=== PATIENT | female | born 1940 | race Caucasian/White ===

== ENCOUNTER 2019-09-24 06:00 | Outpatient (RCR) | payer MEDICARE, OTHER, SELFPAY | END 2019-10-24 00:01 | LOC: SPT 06:00 | PROVIDERS: Family Provider Family Medicine; Visit Provider Family Medicine | DX: I89.8 Other specified noninfective disorders of lymphatic vessels and lymph nodes (principal) | CPT/HCPCS: 97140 ×4 ==

== ENCOUNTER 2019-10-09 10:01 | Outpatient (RCR) | payer MEDICARE, OTHER, SELFPAY | END 2019-10-24 00:01 | LOC: ONCMED 10:01 | PROVIDERS: Family Provider Family Medicine; Visit Provider Internal Medicine Medical Oncology | DX: C77.3 Secondary and unspecified malignant neoplasm of axilla and upper limb lymph nodes (principal); C78.02 Secondary malignant neoplasm of left lung; Z85.820 Personal history of malignant melanoma of skin; T82.9XXA Unspecified complication of cardiac and vascular prosthetic device, implant and graft, initial encounter; Y80.1 Therapeutic (nonsurgical) and rehabilitative physical medicine devices associated with adverse incidents; Z92.3 Personal history of irradiation | CPT/HCPCS: 36593; 36598; 71250; 96374; J1642; J2997; Q9967 ==

== ENCOUNTER 2019-10-25 06:00 | Outpatient (RCR) | payer MEDICARE, OTHER, SELFPAY | END 2019-11-24 23:59 | disposition home or self-care (01) | LOC: SPT 06:00 | PROVIDERS: Family Provider Family Medicine; PCP Family Medicine; Referring Provider Family Medicine; Visit Provider Family Medicine | DX: I89.0 Lymphedema, not elsewhere classified (principal) | CPT/HCPCS: 97140 ==

== ENCOUNTER 2019-11-13 06:16 | Day surgery (SDC) | payer MEDICARE, OTHER, SELFPAY ==
[2019-11-10 12:18] VITALS: BMI 42.0
--- NOTE | 2019-11-13 | SCC_ITS ---
Procedure Done: Exchange to PowerPort in the left subclavian vein from the existing Mediport 1.2 seconds of fluoroscopic guidance, for a cumulative dose of 22.95 mGy, was provided to Dr. Grant by the radiology department. C-arm images of the chest were saved for the patient's permanent record. [facility]
--- NOTE | 2019-11-13 06:32 | SC_ITS ---
WS: [id number] INTRAOPERATIVE TECHNIQUE: 2 Spot fluoroscopic images for intraoperative purposes. FLUOROSCOPY TIME: 72.5 seconds CLINICAL INFORMATION: Mediport placement COMPARISON: None. FINDINGS: Left Port-A-Cath with tip in the distal SVC. No visualized pneumothorax. SC/C-arm [place] CVA [id number] IMPRESSION: Images obtained for intraoperative purposes.
--- NOTE | 2019-11-13 06:54 | ANES.PREANES ---
Pre-Anesthetic Assessment Pre-Anesthetic Assessment: Height/Weight: Height 1.5 m Weight 94.347 kg Preop Diagnosis: Nonfunctioning MediPort Proposed Procedure: Operation Date: 11/13/19 08:00 Proposed Procedures p Portacath Revision(Not Applicable) - Zohaib Bermudez MD Last intake: Intake Last Liquid Date 11/12/19 Last Liquid Time 05:30 Last Solid Date 11/12/19 Last Solid Time 21:30 Social: Social History: Tobacco, No alcohol and No tobacco Exam: Pre-Anes Outpt Exam: alert, oriented x 3, clear to auscultation bilaterally and regular rate & rhythm Airway: Submandibular: WNL Cervical ROM: WNL MP: 3 Dentition: Other (very poor) History/ROS: No significant history except as noted Pulmonary: Pulmonary: OLIVAREZ and Sleep apnea CV/HEM: CV/HEM: HTN : : None reported Hepatic: Hepatic: None reported GI: GI: GERD (occ) Metabolic: Metabolic: DM and Morbid obesity Musc/skel: Musc/skel: Lower Back Pain, OA/DJD and Weakness (gen) Neuropsych: Neuropsych: Anxiety and Depression Anesthetic Plan: ASA status: III Anesthesia: Anesthesia Evaluation and MAC Risk of > 500 ml blood loss (7ml/kg in children): No PFSH Anesthesia PFSH: Social History Smoking and tobacco status: never smoked Second hand smoke exposure: No Smoking risk assessment/counseling performed?: No Alcohol intake: never Desire information about alcohol rehabilitation?: No Counseling given: No Desire information about substance/drug rehabilitation?: No Counseling given: No Adopted: No Caregiver/support person: Yes Lives independently: Yes Household members: family Housing: House Marital status: / Highest education level completed: High School Graduate service: No Current occupational status: retired Current occupational exposures/hazards: No Pets and animals: No History of recent travel: No Sexually active: No Current gender identity: Female Special bandar needs: No Financial difficulty paying for basics: Not Very Hard Data Anesthesia Cardiac Studies: No Data to Display
[2019-11-13 07:02] VITALS: BP 160/93; PULSE 76; RESP 16; TEMP 36.6; O2SAT 95
[2019-11-13 07:03] LABS: Glucose Point of Care 170 mg/dL (70-110)
[2019-11-13] MEDS: sodium chloride 0.9% 1,000 ML 30 ML IV (07:23)
--- NOTE | 2019-11-13 07:57 | PM.HPUD ---
H&P update H&P Update: DATE OF SURGERY/PROCEDURE: 11/13/19 DATE H&P PERFORMED: 11/06/19 H&P UPDATE INFORMATION: H&P completed within last 30 days and No changes to prior documentation PLANNED PROCEDURE: Operation Date: 11/13/19 08:00 Proposed Procedures p Portacath Revision(Not Applicable) - Zohaib Bermuedz MD Full H&P Medications/Allergies: Current Medications: Current Medications Generic Name Dose Route Start Last Admin Trade Name Jenn PRN Reason Stop Dose Admin Sodium Chloride 1,000 mls @ 30 ml s/hr 11/13/19 07:00 11/13/19 07:23 Sodium Chloride 0.9% IV 11/14/19 06:59 30 mls/hr .Q24H SAKINA Administration Perinent History: Medical/Surgical History: Medical History (Updated 11/07/19 @ 14:55 by Zohaib Bermudez MD) Anxiety (Acute) Depressive disorder (Acute) Diabetes (Acute) History of radiation therapy (Acute) Right axilla 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 (Acute) 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 (Acute) JOSSIE (obstructive sleep apnea) (Acute) Port-A-Cath in place (Acute) Family History: Family History (Updated 11/01/19 @ 09:33 by Yesica Healy RN) Father Diabetes Son Anesthesia complication Daughter Anesthesia complication Denies family history of Bleeding disorder Social History: Social History Smoking and tobacco status: never smoked Second hand smoke exposure: No Smoking risk assessment/counseling performed?: No Alcohol intake: never Desire information about alcohol rehabilitation?: No Counseling given: No Desire information about substance/drug rehabilitation?: No Counseling given: No Adopted: No Caregiver/support person: Yes Lives independently: Yes Household members: family Housing: House Marital status: / Highest education level completed: High School Graduate service: No Current occupational status: retired Current occupational exposures/hazards: No Pets and animals: No History of recent travel: No Sexually active: No Current gender identity: Female Special bandar needs: No Financial difficulty paying for basics: Not Very Hard
[2019-11-13] MEDS: vancomycin 1,000 MG in sodium chloride 0.9% 250 ML 250 MG IV (08:02)
[2019-11-13] MEDS: lidocaine 1% INJ 20 mL SUBCUT (08:32)
[2019-11-13] MEDS: heparin, porcine 1,000 unit/mL INJ 10 mL 10000 UNIT IRRIGATION (08:33)
--- NOTE | 2019-11-13 09:01 | P.OP_ITS ---
Operative Report Date of procedure: 11/13/19 Pre-op Diagnosis: Nonfunctioning MediPort Post-op diagnosis: same Procedure Done: Exchange to PowerPort in the left subclavian vein from the existing Mediport Fluoroscopic guidance and interpretation for placement of catheter Pathology: none sent Surgeon: Zohaib eBrmudez Anesthesia: MAC Estimated blood loss (mL): 10 Condition: stable Disposition: PACU Procedure: The patient was taken to the operating room and placed under MAC af ter IV antibiotic had been administered. The chest and neck was prepped and draped in a sterile manner. Using a 15 blade the existing scar and the site of the Mediport was cut, subcutaneous tissue was divided using electrocautery and the Mediport was dissected free from the surrounding subcutaneous tissue. Using 11 blade stab incision was made at the site of entry into the left subclavian vein. The catheter was dissected free from the surrounding subcutaneous tissue and cut after leaving a hemostat clamp in place. The Mediport along with the proximal part of the catheter was removed without difficulty. A new PowerPort was then sutured into the subcutaneous pocket using 2-0 Vicryl suture. The catheter was passed through the subcutaneous tunnel to exit in the incision under the left clavicle. Under fluoroscopy a guidewire was passed through the previously divided catheter and the catheter was removed. A dilator sheath was passed over the guidewire and the guidewire was removed. Under fluoroscopy as the peel-away sheath was removed, the previously tunneled catheter was introduced with the tip in the distal superior vena cava. The catheter was cut to appropriate length and attached to the PowerPort. 1: 10,000 heparin diluted in saline was used to withdraw and flush, which was performed without any difficulty. 5 cc of 1: 1000 heparin was injected into the PowerPort. S ubcutaneous tissues were approximated using running 3-0 Vicryl suture and skin was closed using running subcuticular 4-0 Monocryl suture at the 2 sites. Surgical glue was placed and the patient was transferred to recovery room in stable condition.
[2019-11-13 09:25] VITALS: BP 112/82; PULSE 83; RESP 18; TEMP 36.4; O2SAT 94
[2019-11-13] MEDS: sodium chloride 0.9% SDV 10 mL 20 ML (09:25)
[2019-11-17] MEDS: sodium chloride 0.9% 1,000 ML 30 ML IV (12:42)
== END 2019-11-13 09:35 | disposition home or self-care (01) ==
PROVIDERS: Family Provider Family Medicine; PCP Family Medicine; Visit Provider Surgery
PROC: (CPT 36597; principal; 2019-11-13 08:00)
DX: Z45.2 Encounter for adjustment and management of vascular access device (principal); E11.9 Type 2 diabetes mellitus without complications; G47.33 Obstructive sleep apnea (adult) (pediatric); C34.90 Malignant neoplasm of unspecified part of unspecified bronchus or lung; C77.9 Secondary and unspecified malignant neoplasm of lymph node, unspecified
CPT/HCPCS: 36582; 12345; 36416; 76000; 77001; 82962; 96365; C1788; J1644; J2001; J2704; J3370; J3490; J7030; J7050

== ENCOUNTER 2019-11-25 06:00 | Outpatient (RCR) | payer MEDICARE, OTHER, SELFPAY | END 2019-12-23 23:59 | disposition home or self-care (01) | LOC: SPT 06:00 | PROVIDERS: Family Provider Family Medicine; PCP Family Medicine; Referring Provider Family Medicine; Visit Provider Family Medicine | DX: I89.8 Other specified noninfective disorders of lymphatic vessels and lymph nodes (principal) | CPT/HCPCS: 97140 ==

== ENCOUNTER 2019-12-07 14:29 | Outpatient (CLI) | payer MEDICARE, OTHER, SELFPAY ==
[2019-12-07 15:38] LABS: Basophils % 0.6 %; Eosinophils # 0.1 10^3/uL (0.0-0.8); Eosinophils % 1.5 %; Hematocrit 45.8 % (37.0-47.0); Hemoglobin 14.7 g/dL (11.5-15.3); Lymphocytes % 30.4 %; Mean Corpuscular HGB Conc 32.1 g/dL (30.0-36.0); Mean Corpuscular Hemoglobin 28.9 pg (28.0-34.0); Mean Platelet Volume 10.8 fL (7.4-10.4); Monocytes # 0.5 10^3/uL (0.2-0.9); Monocytes % 7.7 %; Neutrophils # 3.9 10^3/uL (1.8-7.7); Neutrophils % 59.5 %; Nucleated Red Blood Cells % 0 %; Platelet Count 187 10^3/cmm (130-400); Red Blood Count 5.09 10^6/uL (4.1-5.3); Red Cell Distribution Width 13.9 % (12.1-15.1); White Blood Count 6.6 10^3/uL (4.0-10.0)
[2019-12-07 15:55] LABS: Alanine Aminotransferase 23 U/L (0-33); Albumin Level 3.9 g/dL (3.5-5.2); Alkaline Phosphatase 50 IU/L (35-105); Anion Gap 17.6 (5-19); Aspartate Amino Transferase 27 U/L (0-32); Blood Urea Nitrogen 20 mg/dL (8-23); Calcium 9.9 mg/dL (8.5-10.5); Carbon Dioxide 22 mmol/L (22-29); Chloride 102 mmol/L (98-107); Globulin 3.1 g/dL (1.3-4.6); Glucose 153 mg/dL (65-115); Lactate Dehydrogenase 154 U/L (135-214); Potassium 3.6 mmol/L (3.5-5.1); Sodium 138 mmol/L (136-145); Total Bilirubin 0.5 mg/dL (0.15-1.2)
--- NOTE | 2019-12-07 18:34 | ONC FU_ITS ---
Dr. Martinez Patient Follow-Up Note Patient: Dianne Norwood Unit #: [id number]: [id number] Dicatated By: Talat Martinez M.D.Date of Visit:Dec 07, 2019 Onc Med Follow-up/Prog Note Chief Complaint: Metastatic melanoma. History of Present Illness: This is an 78 year-old woman with metastatic melanoma. Sometime around 2013 she became aware of a lump in the area of her right axilla. Initially it was very small and it did not seem to change. Her mammogram in 2014 reported no abnormality in that area. However, late in 2016 the lump began to grow. She noticed that it started to change following a flare up of gout in her right foot. The lump became annoying to her because of its size, but she was otherwise not symptomatic with it. She eventually did see Dr. Gipson about it, and she was then referred to Dr. Murillo. On 11/29/2017 she underwent excision of a large, encapsulated mass in the right axilla. Pathology report described a multilobular tumor measuring 9.8 x 9.1 x 8.8 cm. Fat was noted to be adherent to exterior, but elsewhere the exterior was smooth and membranous. 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 The immunoperoxidase stains were positive to S100, melanin-A, Sox 10, HMB-45, and vimentin. Negative results included actin HHF, smooth muscle actin, CEA, CK-cocktail, desmin, YOLANDA, Myogenin, myosin, and NSE. Overall, the findings were consistent with malignant melanoma, encapsulated and focally necrotic. In 1999 she had undergone excision of a melanoma from the bridge of the nose. Apparently she had initially been recommended to have skin grafting with it, but it was later determined to be unnecessary, and she had no futher treatment for it. I had seen her initially on 12/07/2017 to discuss further management. She had further evaluation with PET/CT on 12/11/2017. It showed a 10.7 x 4.6 cm postsurgical seroma in the right axilla, FDG negative. There were no suspicious right axillary lymph nodes noted, and there was no evidence of any enlarged left axillary lymph nodes or other adenopathy. There was, however, a 2.7 x 1.8 cm left lower lobe pulmonary nodule with SUV 8.9, suspicious for metastatic disease. I also requested a BRAF mutation analysis on the axillary mass, and that came back negative. I had seen her for a follow-up visit in December 2017. I had recommended biopsy of the pulmonary nodule. She declined any further evaluation, in part because she was really not interested in attempting any further treatment for the melanoma. She was seen for a follow-up again on 04/05/2018. At that point she did develop recurrent mass in the right axillary. Given the bulky involvement, I had referred her back to Dr. Bermudez for consideration of surgical resection. There was some delay in getting the procedure scheduled, she eventually underwent right axillary lymph node dissection on 05/27/2018. Pathology showed an extensively necrotic right axillary mass, the largest intact piece measuring 13 x 4 x 10.7 x 10.2 cm. A smaller piece measured 1.5 cm and in aggregate of smaller pieces measure up to 9 x 7 x 5 cm. It was again consistent with metastatic melanoma. With those findings and with suspected a metastatic lesion in the left lung, I had recommended a trial of immunotherapy. She did agree to treatment, but due to her concerns about potential toxicity, I did opt to limit her treatment to single agent nivolumab at the 240 mg dosage. She began cycle 1 on 07/04/2018. She tolerated without any apparent toxicity, and she was then able continue further treatment at 2-week intervals. Initially she did appear to be showing response, with interval decrease in the left lower lobe pulmonary nodule by chest x-ray. However, at her follow-up visit in September 2018 there was significant increase in her right axillary mass. Evaluation with ultrasound showed multiple enlarged right axillary lymph nodes, the largest measuring 2.9 x 4.2 x 5.1 cm. Another prominent node measured 2.6 x 3 x 3.5 cm. Restaging PET/CT on 10/22/2018 showed dominant right axillary mass with extensive necrosis, measuring roughly 8.0 x 5.6 cm with elevated SUV at 21.5. A 4.2 cm mass in the posterior axilla was also FDG avid. The left lower lobe pulmonary nodule had decreased to 1.3 cm and was FDG negative, consistent with treated malignancy. With further recurrence of the axillary node involvement and no other areas of disease progression, she was referred back to Dr. Bermudez and on 10/31/2018 she underwent right level II and III axillary node dissection. Pathology was consistent with melanoma involving 12 of 13 lymph nodes, the largest measuring 6.0 cm. Following recovery from the surgery, she had radiation oncology consultation with Dr. Pacheco. She began postoperative radiation to the right axillary area on 11/29/2018. She completed treatment on 12/27/2018, total dose 4800 cGy. During that time, she also underwent SBRT to the left lung mass, total dose 4800 cGy. She developed a significant skin reaction in the axillary area, but she otherwise tolerated the treatment well. She has been on observation/expectant management following completion of the radiation. Her other medical illnesses include hypertension, hyperlipidemia, type II diabetes, obstructive sleep apnea, degenerative arthritis/degenerative disease of the spine, osteoporosis, and gout. She also has anxiety/depression. She has had limited activity due to problems with her back and knees. In 1994 she underwent hysterectomy/bilateral salpingo-oophorectomy for uterine fibroids, which she reported to have contained malignancy. She had previously smoked 1 pack of cigarettes daily, but she quit smoking in 1963. INTERIM HISTORY: Restaging CT scans of the chest, abdomen, and pelvis on 02/23/2019 showed significant improvement in the multiple metastatic nodules over the right axilla and anterior right upper thorax. There was minimal posttreatment radiation thickening over the pectoralis muscle and soft tissues of the right axilla. There was no residual left lower lobe pulmonary nodule, and per the report it was presumed to have been resected. There were severe degenerative changes noted in the glenohumeral joints bilaterally. There was no evidence of disease progression. Her restaging CT scans of the chest, abdomen, and pelvis on 07/13/2019 showed mild increased interstitial opacities in the anterior segment right upper lobe, suggestive of mild pneumonitis. There was parenchymal scarring versus subsegmental atelectasis in the left lower lobe, increased from the prior study. There was no evidence of recurrent mass or adenopathy in the right axilla. There was no left axillary, mediastinal, or hilar lymphadenopathy noted. The abdomen/pelvis showed development of a right renal lesion of the posterior mid cortex, with the reported differential to include pyelonephritis or metastatic disease. The area measured about 2.4 x 2 cm. Her urine culture did grow Escherichia coli, for which she did receive appropriate antibiotic therapy. A repeat CT abdomen/pelvis on 08/08/2019 showed improvement in the right renal lesion. She continued on observation/expectant management for the melanoma. Her repeat chest CT on 10/09/2019 showed postradiation changes in the right axilla and in the upper lobe of the right lung. There was no evidence of residual or recurrent neoplastic process in the right axilla. Nodular parenchymal thickening in the left lower lobe showed variable appearance compared to the June 2019 study. She is seen for a followup visit. She complains that she is awfully tired. She has limited activity. ECOG score is 2. She has good appetite. She has no fever or night sweats. She complained that she is very short of breath. She has just slight cough. She does not complain of chest pain. She recently had some nausea and diarrhea, most likely associated with viral syndrome. She otherwise has just occasional acid reflux. She has frequent urination with urgency/incontinence, but that is chronic. She complains that she is achy all over. She particularly has pain in her wrists and hands. She has occasional headaches which are not bad. She occasionally has dizziness. She has neuropathy in her feet. She also has numbness/tingling in the ulnar distribution of the left hand. She has ongoing problems with the lymphedema in her right arm. She is still going to physical therapy once a week. Medications: Aspirin 2 Tablet (of 81 mg) Oral daily, Calcium + D 1 Tablet (of 500-650 Units/mg) Oral daily, Fish Oil 1 (1000 mg) Capsule Oral daily, Indapamide 1 Tablet (of 2.5 mg) Oral daily, MetFORMIN HCl 1 (1000 mg) Tablet Oral daily, Metoprolol Tartrate 1 (25 mg) Tablet Oral b.i.d., Spironolactone 1 Tablet (of 25 mg) Oral daily, Super B-Complex 1 Tablet Oral daily, Tylenol Extra Strength 2 Tablet (of 500 mg) Oral at bedtime PRN, Vitamin D3 1 (1000 Units) Capsule Oral daily Allergies: Feldene, Ibuprofen, Morphine Sulfate, NSAIDs, Penicillins, relafen, and Voltaren. Review of Systems: Constitutional - Her energy is not very good. She is not doing much at home. She washes dishes and folds clothes at home. Her appetite is good and her weight is up 5 pounds. No fever, chills, hot flashes, or night sweats. ECOG score is 2, ENMT - No sinus congestion/drainage. No mouth sores. She has a dry mouth/throat. No sore throat or difficulty swallowing, Hematologic/Lymphatic - No abnormal bruising or bleeding, Respiratory - No shortness of breath. She has an occasional cough. No pleuritic pain or hemoptysis, Cardiovascular - No angina pain. No palpitations, Gastrointestinal - She has had nausea and diarrhea the last few days. She has heartburn if she eats the wrong things. No blood in the stool or black stools, Genitourinary (F) - No dysuria or hematuria. She has urinary frequency. No urgency. She has urinary incontinence, Musculoskeletal - Her joints are achy, Integumentary - No skin complications, Neurologic - She has occasional headaches. No dizziness. She has numbness and tingling in the fingers of her left hand, Psychiatric - No anxiety or depression. No insomnia. Vital Signs: Performed on Dec 07, 2019 15:27 Height - 59.00 in Weight - 214.0 lbs (HIGH) BSA - 1.90 sq.m BMI - 43.22 (HIGH) Temperature - 97.8 F (LOW) Pulse - 67 /min Respiration - 24 /min BP - 140/86 mm(hg) O2 Sat - 97 % Pain - 5 Physical Examination: Constitutional - She looks pretty good generally, Eyes - Sclerae nonicteric. Conjunctivae clear, ENMT - No lesions noted in the oral cavity, Hematologic/Lymphatic - There is no cervical or clavicular adenopathy. There is tenderness in the right axilla, but I do not feel any axillary adenopathy, Respiratory - Lungs sound clear with good air movement bilaterally, Cardiovascular - Heart rhythm is regular. There is no murmur, gallop, or rub noted, Abdomen - Distended. Liver and spleen are not enlarged. There is no abdominal mass or ascites noted and there is no inguinal adenopathy, Extremities - There is severe lymphedema of the right arm. There is mild lower extremity edema, Integumentary - There are no suspicious skin lesions noted, Neurologic - No focal neurologic deficits noted. Lab/Imaging: Test performed on Dec 07, 2019 14:57 LDH (Total) 154 U/L Sodium 138 mmol/L Potassium 3.6 mmol/L Chloride 102 mmol/L CO2 22 mmol/L Anion Gap 17.6 BUN 20 mg/dL Creatinine 0.5 mg/dL Cr Clearance (Est) 135.2200 mL/min Glucose 153 mg/dL Calcium 9.9 mg/dL Protein, Total 7.0 g/dL Albumin 3.9 g/dL Globulin 3.1 g/dL Bilirubin, Total 0.5 mg/dL ALT (SGPT) 23 U/L AST (SGOT) 27 U/L Alkaline Phosphatase 50 IU/L WBC 6.6 10 3/uL RBC 5.09 10 6/uL HGB 14.7 g/dL HCT 45.8 % MCV 90.0 fL MCH 28.9 pg MCHC 32.1 g/dL RDW 13.9 % Platelet Count 187 10 3/cmm MPV 10.8 fL Neutrophils 3.9 10 3/uL Lymphocytes 2.0 10 3/uL Monocytes 0.5 10 3/uL Eosinophils 0.1 10 3/uL Basophils 0.0 10 3/uL Neutrophil % 59.5 % Lymphocyte % 30.4 % Monocyte % 7.7 % Eosinophil % 1.5 % Basophils % 0.6 % Impression: 1. Patient with malignant melanoma in the form of a large, encapsulated right axillary mass. This was presumed to be metastatic involvement in a right axillary lymph node. She underwent complete excision of the mass on 11/29/2017. The tumor was BRAF mutation negative. 2. She has a history of having undergone removal of a melanoma from the bridge of the nose in 1999. 3. She underwent SUSANNAH/BSO in 1994, reportedly for malignancy involving a uterine fibroid. This is per patient and undocumented. Her other medical illnesses include: 4. Hypertension. 5. Hyperlipidemia. 6. Type II diabetes. 7. Obstructive sleep apnea. 8. Degenerative arthritis/degenerative disease of the spine. 9. Gout. 10. Osteopenia. 11. Anxiety/depression. Her staging PET/CT on 12/11/2017 showed residual FDG negative seroma in the right axilla, but there were no suspicious right axillary lymph nodes and there was no other adenopathy noted. There was, however, and FDG avid 2.7 x 1.8 cm left lower lobe pulmonary nodule which was suspicious for metastasis. She declined any further evaluation or any further treatment for the melanoma. In March she presented with a large right axillary mass, clinically consistent with recurrence of the melanoma. Her repeat chest CT showed only minimal increase in the size of the left lower lobe pulmonary nodule compared to the PET/CT from November 2017. Also noted was evidence of lobulated soft tissue masses in the right axilla consistent with adenopathy, the largest measuring at least 7.9 x 5.2 cm. There were additional new enlarged lymph nodes adjacent to the right pectoralis muscle and in the axilla. She underwent right axillary lymph node dissection with complete resection of the axillary mass on 05/27/2018. Pathology was again consistent with metastatic melanoma. She began a trial of immunotherapy with nivolumab on 07/04/2018. It was initiated at a 2-week dosing interval. As of her follow-up visit on 10/24/2018 she had completed 9 cycles of treatment. She had tolerated it very well. Initially she appeared to be showing response by chest x-ray. However, by that time she was showing significant progression of disease in the right axilla, confirmed by restaging PET/CT. That study, however, did show evidence of significant response in the left lower lobe pulmonary nodule. There were no other areas of metastatic involvement noted. With localized disease progression in the right axilla, she was referred back to Dr. Bermudez and she underwent right level II and 3 axillary node dissection on 11/02/2017. Pathology showed metastatic melanoma involving 12 of 13 lymph nodes, the largest measuring 6.0 cm. Following recovery from the surgery she had radiation oncology consultation with Dr. Pacheco. She was then given postoperative radiation to the right axilla, completed on 12/27/2018 to a total dose of 4800 cGy. During that time she also underwent SBRT to the left lung lesion, total dose 4800 cGy. She had a good recovery following the radiation. Her restaging CT scans in February 2019 appeared show complete resolution of right axillary/chest wall involvement and complete resolution of the left lower lobe pulmonary nodule. With those findings, she was then followed on observation/expectant management. Her repeat CT scans in June showed no significant findings in the chest area. The abdomen/pelvis showed a new right renal lesion, but that did improve following antibiotic therapy, and it most likely was related to pyelonephritis. During followup she has had ongoing complaints of fatigue, shortness of breath, and generalized aching. She also has ongoing problems with lymphedema in her right arm. Thus far there has beeh no obvious progression of the melanoma. Plan: She remains on observation/expectant management for the melanoma. She will be scheduled for repeat chest CT in 1 month. In the absence of any evidence of disease progression, I will check and see whether she may be eligible for lymphedema surgery, which is apparently being done now by a surgeon at [facility]. Signed By: Talat Martinez M.D. <<Signature on File>>
== END 2019-12-07 14:30 | disposition home or self-care (01) ==
PROVIDERS: Family Provider Family Medicine; PCP Family Medicine; Visit Provider Internal Medicine Medical Oncology
DX: Z08 Encounter for follow-up examination after completed treatment for malignant neoplasm (principal); Z85.820 Personal history of malignant melanoma of skin; I89.0 Lymphedema, not elsewhere classified; I97.89 Other postprocedural complications and disorders of the circulatory system, not elsewhere classified; I10 Essential (primary) hypertension; E78.5 Hyperlipidemia, unspecified; G47.33 Obstructive sleep apnea (adult) (pediatric); M19.90 Unspecified osteoarthritis, unspecified site; M81.0 Age-related osteoporosis without current pathological fracture; M10.9 Gout, unspecified; F41.8 Other specified anxiety disorders; E11.42 Type 2 diabetes mellitus with diabetic polyneuropathy; M85.80 Other specified disorders of bone density and structure, unspecified site; Z79.82 Long term (current) use of aspirin; Z79.84 Long term (current) use of oral hypoglycemic drugs; Z92.3 Personal history of irradiation; Z92.25 Personal history of immunosuppression therapy; Z98.890 Other specified postprocedural states; Z85.42 Personal history of malignant neoplasm of other parts of uterus; Z87.891 Personal history of nicotine dependence
CPT/HCPCS: 36591; 80053; 83615; 85025; 99214

== ENCOUNTER 2019-12-24 06:00 | Outpatient (RCR) | payer MEDICARE, OTHER, SELFPAY | END 2020-01-15 23:00 | disposition home or self-care (01) | LOC: SPT 06:00 | PROVIDERS: Family Provider Family Medicine; PCP Family Medicine; Referring Provider Family Medicine; Visit Provider Family Medicine | DX: I89.8 Other specified noninfective disorders of lymphatic vessels and lymph nodes (principal) | CPT/HCPCS: 97140 ==

== ENCOUNTER 2020-01-08 13:08 | Emergency (ER) | payer MEDICARE, OTHER, SELFPAY ==
[2020-01-08 13:13] VITALS: BP 154/98; PULSE 84; RESP 18; TEMP 36.7; O2SAT 94; BMI 40.8
--- NOTE | 2020-01-08 13:57 | ED_ITS ---
Entered by Mary Huang, acting as scribe for Ernestine Vides MD, [facility] [place] Jan 08, 2020 13:08 HPI - Headache General: Chief Complaint: Headache Stated Complaint: H/A X 2WEEKS Time Seen by Provider: 01/08/20 13:57 Source: patient Mode of arrival: ambulatory Limitations: no limitations History of Present Illness: HPI Narrative: 79 yo Female presents to ED with complaint of headache. Pt states that her headache which came on with an anxiety attack. Pt states that laying in the bed is making her dizzy. Pt states that sounds are bothering her. Pt states that she has had silent headaches in the past which make her eyes move but don't cause any pain. Pt states that this headache started about 2 weeks ago. Pt states that she has pressure in her neck. Pt's daughter states that the patient's dizziness is causing her some confusion. MD elicited complaint: headache Onset (ago): week(s) (2) Onset description: gradually Quality & Timing: constant Exacerbating factors: light and noise Relieving factors: nothing Context: occurred at rest Associated symptoms: Reports confusion, lightheadedness, photophobia and sound sensitivity; Deny fever(s), nausea, rash or vomiting Treatments prior to arrival: none Review of Systems General: Reports: 10 or more systems reviewed and unremarkable except in HPI and below Const: Denies: fever, chills or body aches Eyes: Denies: change in vision or blurry vision ENMT: Denies: throat pain, enlarged tonsils, painful swallowing, hoarseness, mouth pain or swelling of lips/tongue Card: Reports: lightheadedness Resp: Denies: shortness of breath, productive cough or non-productive cough GI: Denies: abdominal pain, nausea or vomiting : Denies: flank pain, difficulty urinating, painful urination, urinary frequency, urinary urgency or urinary hesitancy Musc: Denies: neck pain, back pain or extremity swelling Skin/Breast: Denies: rash, itching or redness Neuro: Reports: headache, dizziness and confusion Endo: Denies: excessive urination, excessive thirst or tired all the time PFS ED PFSH: Medical History Anxiety Depressive disorder Diabetes History of radiation therapy Right axilla 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 JOSSIE (obstructive sleep apnea) Port-A-Cath in place Surgical History Encounter for care related to Port-a-Cath History of bilateral tubal ligation History of hysterectomy History of left knee replacement History of lymph node dissection of right axilla (~10/2018) History of removal of Port-a-Cath History of right knee joint replacement Family History Father Diabetes Son Anesthesia complication Daughter Anesthesia complication Denies family history of Bleeding disorder Social History Smoking and tobacco status: former smoker Second hand smoke exposure: No Smoking risk assessment/counseling performed?: No Alcohol intake: never Desire information about alcohol rehabilitation?: No Counseling given: No Desire information about substance/drug rehabilitation?: No Counseling given: No Adopted: No Caregiver/support person: Yes Lives independently: Yes Household members: family Housing: House Marital status: / Highest education level completed: High School Graduate service: No Current occupational status: retired Current occupational exposures/hazards: No Pets and animals: No History of recent travel: No Sexually active: No Current gender identity: Female Special bandar needs: No Financial difficulty paying for basics: Not Very Hard Physical Exam Const: COMMON NORMALS: no apparent distress, average body habitus, oriented x3, no limitations, healthy appearing, alert and well nourished HENMT: COMMON NORMALS: normocephalic, head/scalp atraumatic and moist oral mucous membranes HEAD & SCALP: normocephalic and atraumatic Eye: COMMON NORMALS: PERRL, EOMs intact bilaterally, conjunctivae normal and no scleral icterus CONJUNCTIVA: Yes conjunctivae normal PUPIL: Yes PERRL DIRECT OPHTHALMOSCOPY: Yes photophobia Neck/C-Spine: COMMON NORMALS: full ROM, supple, no meningeal signs, no JVD and no carotid bruits Chest: COMMONS NORMALS: inspection of chest normal and palpation of chest normal Resp: COMMON NORMALS: normal respiratory effort, no retractions, no use of accessory muscles, clear to auscultation bilaterally and percussion normal AUSCULTATION: clear to auscultation bilaterally PERCUSSION: percussion normal Cardio: COMMON NORMALS: no JVD, regular rate, regular rhythm, S1 normal heart sound, S2 normal heart sound, no gallops, no clicks, no murmurs, no rub and peripheral pulses 2+ throughout RATE: regular rate RHYTHM: regular rhythm HEART SOUNDS: S1 normal and S2 normal PERIPHERAL PULSES: pulses 2+ throughout GI: COMMON NORMALS: normal to inspection, nondistended, normoactive bowel sounds, soft to palpation, non-tender, no hepatosplenomegaly, no masses and no bruits PALPATION: Yes soft and Yes no hepatosplenomegaly : COMMON NORMALS: Yes no CVA tenderness BLADDER/KIDNEY EXAM: Yes no CVA tenderness Back/Pelvis: COMMON NORMALS: no CVA tenderness Extremity: COMMON NORMALS: normal to inspection, full ROM, normal capillary refill, no calf tenderness and no pedal edema Neuro: COMMON NORMALS: oriented x3 SENSORIUM/ORIENTATION: Yes alert MENINGEAL SIGNS: Yes no meningeal signs Skin: COMMON NORMALS: no rashes or lesions noted, no wounds, skin turgor normal, no jaundice, no petechiae and no mottling GENERAL SKIN EXAM: no rashes or lesions noted and turgor normal Course Consultations: Consultation #1: Call to [facility] in [place], [place]. Time: 16:45 Consultation #2: Dr. Aguayo, ED physician who kindly accepted the patient to his service. Time: 17:19 Vital Signs: Vital signs: Vital Signs Temperature 98.1 F 01/08/20 13:13 Pulse Rate 78 01/08/20 18:27 Respiratory Rate 16 01/08/20 18:27 Blood Pressure 127/75 01/08/20 18:27 Pulse Oximetry 95 01/08/20 18:27 MDM - Headache MDM Narrative: Medical decision making narrative: 79-year-old female patient who presents to the emergency department with concerns of a headache that has been ongoing for about 2 weeks and has been gradually worsening and is associated with some confusion now. On examination she had no lateralizing signs and her exam was otherwise unremarkable other than mild confusion. Head CT however shows a large intracerebral hemorrhage and she is transferred to [facility] emergency department for further evaluation and management. I initially spoke to the neurosurgeon general operations manager, Dr. Avalos who felt the patient should be admitted to the neuro hospitalist, however the neuro hospitalist Dr. Mccoy wanted the patient transferred to the emergency department. Medical Records: Attestation: I reviewed the patient's medical records. Lab Data: Attestation: I reviewed the patient's lab results. Labs: Lab Results 01/08/20 01/08/20 Range/Units 15:40 15:40 WBC 7.7 (4.0-10.0) 10^3/ uL RBC 5.21 (4.1-5.3) 10^6/u L Hgb 15.6 H (11.5-15.3) g/dL Hct 48.4 H (37.0-47.0) % MCV 92.9 (81-99) fL MCH 29.9 (28.0-34.0) pg MCHC 32.2 (30.0-36.0) g/dL RDW 13.5 (12.1-15.1) % Plt Count 184 (130-400) 10^3/c mm MPV 9.8 (7.4-10.4) fL Neut % (Auto) 68.5 % Lymph % (Auto) 23.5 % [place] % (Auto) 6.4 % Eos % (Auto) 0.9 % Baso % (Auto) 0.6 % Neut # (Auto) 5.3 (1.8-7.7) 10^3/u L Lymph # (Auto) 1.8 (0.8-4.8) 10^3/u L [place] # (Auto) 0.5 (0.2-0.9) 10^3/u L Eos # (Auto) 0.1 (0.0-0.8) 10^3/u L Baso # (Auto) 0.1 (0.0-0.1) 10^3/u L Nucleated RBC % (a uto) 0 % Nucleated RBCs # 0.0 /100WBC Sodium 139 (136-145) mmol/L Potassium 3.7 (3.5-5.1) mmol/L Chloride 102 (98-107) mmol/L Carbon Dioxide 23 (22-29) mmol/L Anion Gap 17.7 (5-19) BUN 15 (8-23) mg/dL Creatinine 0.4 L (0.5-0.9) mg/dL Glucose 142 H (65-115) mg/dL Calculated Osmolal ity 287 (285-295) mOsm/k g Calcium 9.9 (8.5-10.5) mg/dL Total Bilirubin 0.6 (0.15-1.2) mg/dL AST 19 (0-32) U/L ALT 19 (0-33) U/L Alkaline Phosphata se 56 (35-105) IU/L Total Protein 7.3 (6.6-8.7) g/dL Albumin 3.8 (3.5-5.2) g/dL Globulin 3.5 (1.3-4.6) g/dL Imaging Data^: CT Head: Radiologist's impression: [place] [address] CT Scan Report Signed Patient: Dianne Norwood #: [id number] : 1941Acct#:[id number] Age/Sex: 79 / FADM Date: 01/08/20 Loc: ERRoom/Bed: Attending Dr: Ordering Provider/Ordering MD: Ernestine Vides MD, [facility] [place] Date of Service: 01/08/20 Procedure(s): CT head wo con* [id number] Accession Number(s): [id number] Report Number: [id number] WS: [id number] CT scan of the head, 01/08/2020 Clinical Data: headache Comparison: None. DLP: 888.[address] scans at [facility] use at least one of these dose optimization techniques: automated exposure control; mA and/or kV adjustment per patient size (includes targeted exams where dose is matched to clinical indication); or iterative reconstruction. Findings: There is a 4.25 cm area of hemorrhage, probably an intracerebral hematoma, in the posterior right parietal lobe. There is surrounding edema. In addition there is minimal hemorrhage into the temporal horns of the lateral ventricles. No ventricular shift is present. No other masses are seen. The cerebellum and the brainstem are not remarkable. Bony windows of the skull and skull base show no fractures or erosions. The mastoid air cells, internal auditory canals, sella turcica, intraorbital contents, and paranasal sinuses are unremarkable. CT/CT head wo con* [id number] Impression: 1. 4.25 cm area of hemorrhage in the posterior right parietal lobe with surrounding edema. 2. Minimal hemorrhage into the temporal horns. 3. The results were called to Dr. Vides in the emergency room at 0430 hours. Dictated By:Hannah Weiss MD Signed By:Hannah Weiss MDSigned Date/Time:01/08/20 1633 DD/ 1625 Discharge Plan Discharge Patient Disposition: Xfer Short-Term Hosp Clinical Impression: Intracranial hemorrhage Condition: Stable Discharge Orders: Transfer Out of Facility (Order); Ordered 01/08/20 Ordered By: Ernestine Vides Referrals: Betito Gipson MD [Primary Care Provider] - Discharge Date/Time: 01/08/20 18:27 Coding Level of Care Code ED Content Analyst for Chg Fwd Exam Comprehensive The documentation recorded by the Sal lazaro Carmen, accurately reflects the service I personally performed and the decisions made by Peewee romano Adegoke I, MD, [facility] [place] Jan 08, 2020 13:08
[2020-01-08 13:58] VITALS: RESP 17
--- NOTE | 2020-01-08 15:16 | CT_ITS ---
WS: [id number] CT scan of the head, 01/08/2020 Clinical Data: headache Comparison: None. DLP: 888.[address] scans at [facility] use at least one of these dose optimization techniques: automat ed exposure control; mA and/or kV adjustment per patient size (includes targeted exams where dose is matched to clinical indication); or iterative reconstruction. Findings: There is a 4.25 cm area of hemorrhage, probably an intracerebral hematoma, in the posterior right par ietal lobe. There is surrounding edema. In addition there is minimal hemorrhage into the temporal hor ns of the lateral ventricles. No ventricular shift is present. No other masses are seen. The cerebell um and the brainstem are not remarkable. Bony windows of the skull and skull base show no fractures or erosions. The mastoid air cells, advisory internship al auditory canals, sella turcica, intraorbital contents, and paranasal sinuses are unremarkable. CT/CT head wo con* [id number] Impression: 1. 4.25 cm area of hemorrhage in the posterior right parietal lobe with surroun ding edema. 2. Minimal hemorrhage into the temporal horns. 3. The results were called to Dr. Vides in the emergency room at 0430 hours.
[2020-01-08 15:52] LABS: Basophils # 0.1 10^3/uL (0.0-0.1); Basophils % 0.6 %; Eosinophils # 0.1 10^3/uL (0.0-0.8); Eosinophils % 0.9 %; Hematocrit 48.4 % (37.0-47.0); Hemoglobin 15.6 g/dL (11.5-15.3); Lymphocytes # 1.8 10^3/uL (0.8-4.8); Lymphocytes % 23.5 %; Mean Corpuscular HGB Conc 32.2 g/dL (30.0-36.0); Mean Corpuscular Hemoglobin 29.9 pg (28.0-34.0); Mean Corpuscular Volume 92.9 fL (81-99); Mean Platelet Volume 9.8 fL (7.4-10.4); Monocytes # 0.5 10^3/uL (0.2-0.9); Monocytes % 6.4 %; Neutrophils # 5.3 10^3/uL (1.8-7.7); Neutrophils % 68.5 %; Nucleated Red Blood Cells % 0 %; Platelet Count 184 10^3/cmm (130-400); Red Blood Count 5.21 10^6/uL (4.1-5.3); Red Cell Distribution Width 13.5 % (12.1-15.1); White Blood Count 7.7 10^3/uL (4.0-10.0)
[2020-01-08 16:12] LABS: Alanine Aminotransferase 19 U/L (0-33); Albumin Level 3.8 g/dL (3.5-5.2); Alkaline Phosphatase 56 IU/L (35-105); Anion Gap 17.7 (5-19); Aspartate Amino Transferase 19 U/L (0-32); Blood Urea Nitrogen 15 mg/dL (8-23); Calcium 9.9 mg/dL (8.5-10.5); Carbon Dioxide 23 mmol/L (22-29); Chloride 102 mmol/L (98-107); Globulin 3.5 g/dL (1.3-4.6); Glucose 142 mg/dL (65-115); Osmolality Calculated 287 mOsm/kg (285-295); Potassium 3.7 mmol/L (3.5-5.1); Sodium 139 mmol/L (136-145); Total Bilirubin 0.6 mg/dL (0.15-1.2); Total Protein 7.3 g/dL (6.6-8.7)
[2020-01-08 18:27] VITALS: BP 127/75; PULSE 78; RESP 16; O2SAT 95
== END 2020-01-08 18:27 | disposition short-term general hospital (02) ==
PROVIDERS: Emergency Provider Family Medicine; Family Provider Family Medicine; PCP Family Medicine
DX: I62.9 Nontraumatic intracranial hemorrhage, unspecified (principal); Z87.891 Personal history of nicotine dependence; E11.9 Type 2 diabetes mellitus without complications
CPT/HCPCS: 12345; 36415; 70450; 80053; 85025; 99282; 99285

== ENCOUNTER 2020-01-15 22:00 | Emergency (ER) | payer MEDICARE, OTHER, SELFPAY ==
[2020-01-15 22:01] VITALS: BP 134/81; PULSE 82; RESP 20; TEMP 36.7; O2SAT 94; BMI 39.0
--- NOTE | 2020-01-15 22:03 | W.ED.HA ---
HPI - Headache General: Chief Complaint: Headache Stated Complaint: OLGUIN Time Seen by Provider: 01/15/20 22:02 Source: patient and family History of Present Illness: HPI Narrative: 79-year-old female discharged from [facility] January 09 after being hospitalized for 2 days with intracranial hemorrhage presents to the ER by EMS. Daughter is also here with her. States that she continues to have a headache that she has had since at least December 28 but it was slightly worse at 1 point this evening and she also had some chest pressure that lasted about 20 minutes with that. Daughter states these were the symptoms she had when she was initially diagnosed with the bleed in her brain. Headache is mild to moderate uncomfortable and unchanged from the headache she has had, but daughter said they were told it would take a while for the headache to go away but what really concerned her today was that she had chest pressure with it which was her presenting symptom to begin with. Patient denies any chest pain at this time pain was left-sided nonradiating with no accompanying symptoms. She is on 2 L of oxygen at home and does not feel more short of breath than usual. She does tell me that her nose is a little stuffy and she does a lot of mouth breathing seen. No known fever cough or cold symptoms. Associated symptoms: Reports chest pain; Deny fever(s), nausea, rash or vomiting Review of Systems General: Reports: 10 or more systems reviewed and unremarkable except in HPI and below Const: Denies: fever or chills Eyes: Denies: change in vision ENMT: Denies: throat pain Card: Reports: chest pain Resp: Reports: shortness of breath; Denies: productive cough GI: Denies: abdominal pain, nausea, vomiting or change in bowel habits : Denies: difficulty urinating Musc: Denies: muscle weakness Skin/Breast: Denies: rash Neuro: Reports: headache Psych: Denies: hopelessness or suicidal ideation Endo: Denies: excessive urination Tye/Lymph: Denies: easy bruising or easy bleeding All/Imm: Denies: hives PFSH ED PFSH: Social History Smoking and tobacco status: former smoker Second hand smoke exposure: No Smoking risk assessment/counseling performed?: No Alcohol intake: never Desire information about alcohol rehabilitation?: No Counseling given: No Desire information about substance/drug rehabilitation?: No Counseling given: No Adopted: No Caregiver/support person: Yes Lives independently: Yes Household members: family Housing: House Marital status: / Highest education level completed: High School Graduate service: No Current occupational status: retired Current occupational exposures/hazards: No Pets and animals: No History of recent travel: No Sexually active: No Current gender identity: Female Special bandar needs: No Financial difficulty paying for basics: Not Very Hard Physical Exam Const: COMMON NORMALS: no apparent distress, oriented x3, alert and well nourished HENMT: COMMON NORMALS: normocephalic and external nose normal HEAD & SCALP: normocephalic NOSE: external nose normal MOUTH: no trismus Eye: COMMON NORMALS: EOMs intact bilaterally and conjunctivae normal CONJUNCTIVA: Yes conjunctivae normal Neck/C-Spine: COMMON NORMALS: full ROM, no lymphadenopathy and supple CERVICAL SPINE: Yes cervical ROM normal Lymph: LYMPHATIC: no lymphadenopathy noted Resp: COMMON NORMALS: normal respiratory effort, no retractions, no use of accessory muscles and clear to auscultation bilaterally EFFORT & INSPECTION: Yes able to speak in complete sentences AUSCULTATION: clear to auscultation bilaterally Cardio: COMMON NORMALS: regular rate and regular rhythm RATE: regular rate RHYTHM: regular rhythm GI: COMMON NORMALS: normal to inspection, nondistended, normoactive bowel sounds, soft to palpation, non-tender and no masses INSPECTION: Yes normal to inspection AUSCULTATION: Yes normoactive bowel sounds PALPATION: Yes soft, No guarding and No rigid Back/Pelvis: OTHER: Normal range of motion Extremity: GENERAL: Yes normal exam except as noted Neuro: COMMON NORMALS: oriented x3 and CN's II-XII intact bilaterally SENSORIUM/ORIENTATION: Yes alert SPEECH: speech normal Psych: COMMON NORMALS: mental status grossly normal Skin: COMMON NORMALS: no rashes or lesions noted GENERAL SKIN EXAM: no rashes or lesions noted Course Vital Signs: Vital signs: Vital Signs Temperature 98.1 F 01/15/20 22:01 Pulse Rate 82 01/15/20 22:01 Respiratory Rate 20 H 01/15/20 22:01 Blood Pressure 134/81 01/15/20 22:01 Pulse Oximetry 94 01/15/20 22:01 MDM - Headache MDM Narrative: Medical decision making narrative: Talk to the patient and daughter about the CAT scan results that were called to me by Grabiel briones. Daughter says that there were no known mets to her brain when they were at [facility]. I have placed a call to neurosurgery on-call at [facility] to see if they want to see the patient sooner than mid January. Her troponin is also positive but she is chest pain-free. I did not give her aspirin because of her recent intracranial hemorrhage her EKG does not show an ST elevation [place]. We will also discuss with our hospitalist to see if this patient needs to stay in the hospital. 2313 d/w Dr Serrato (neurosurgery salesperson flying squad for Dr Hernandes). Recommends Decadron taper over 10 days and start with 4 mg every 6 hours, however we see fit to taper it is fine. Also explained that the troponin was positive and I would speak with our hospitalist here to see if she needed admission. He states that he would only give aspirin if it were necessary for lifesaving measures. I did not give her aspirin because of her intracranial hemorrhage at this point and she is pain-free. [id number] Arthur cardiology on-call. He states he would not do anything as far as intervention nor giving her aspirin especially since she is pain-free and has no EKG changes. Thinks that the troponin could even be from the stress of her recent intracranial bleed so he agrees that patient can go home at this time. Lab Data: Attestation: I reviewed the patient's lab results. Labs: Lab Results 01/15/20 01/15/20 01/15/20 Range/Units 22:20 22:20 22:20 WBC 7.7 (4.0-10.0) 10^3/ uL RBC 5.59 H (4.1-5.3) 10^6/u L Hgb 16.6 H (11.5-15.3) g/dL Hct 50.1 H (37.0-47.0) % MCV 89.6 (81-99) fL MCH 29.7 (28.0-34.0) pg MCHC 33.1 (30.0-36.0) g/dL RDW 13.6 (12.1-15.1) % Plt Count 201 (130-400) 10^3/c mm MPV 10.0 (7.4-10.4) fL Neut % (Auto) 67.7 % Lymph % (Auto) 22.9 % Brule % (Auto) 7.6 % Eos % (Auto) 1.2 % Baso % (Auto) 0.5 % Neut # (Auto) 5.2 (1.8-7.7) 10^3/u L Lymph # (Auto) 1.8 (0.8-4.8) 10^3/u L Brule # (Auto) 0.6 (0.2-0.9) 10^3/u L Eos # (Auto) 0.1 (0.0-0.8) 10^3/u L Baso # (Auto) 0.0 (0.0-0.1) 10^3/u L Nucleated RBC % (a uto) 0 % Nucleated RBCs # 0.0 /100WBC Sodium 134 L (136-145) mmol/L Potassium 3.3 L (3.5-5.1) mmol/L Chloride 98 (98-107) mmol/L Carbon Dioxide 18 L (22-29) mmol/L Anion Gap 21.3 H (5-19) BUN 12 (8-23) mg/dL Creatinine 0.5 (0.5-0.9) mg/dL Glucose 168 H (65-115) mg/dL Calculated Osmolal ity 278 L (285-295) mOsm/k g Calcium 10.3 (8.5-10.5) mg/dL Troponin T Gen 5 n g/L 53 H (0-10) ng/mL Imaging Data^: CT Head: Radiologist's impression: [place] [address] CT Scan Report Signed Patient: Dianne Norwood #: [id number] : 1941Acct#:[id number] Age/Sex: 79 / FADM Date: 01/15/20 Loc: ERRoom/Bed: Attending Dr: Ordering Provider/Ordering MD: Margoth Doty MD Date of Service: 01/15/20 Procedure(s): CT head wo con* [id number] Accession Number(s): [id number] Report Number: [id number] PROCEDURE INFORMATION: Exam: CT Head Without Contrast Exam date and time: 01/15/2020 10:22 PM Age: 79 years old Clinical indication: Pain; Headache not specified; Patient HX: PT had a recent ich on 01/11/2020; Additional info: OLGUIN, recent ich, h/o metastatic melanoma TECHNIQUE: Imaging protocol: Computed tomography of the head without contrast. Sagittal and coronal reformatted images were created and reviewed. Total DLP: 545.05 mGy-cm Radiation optimization: All CT scans at this facility use at least one of these dose optimization techniques: automated exposure control; mA and/or kV adjustment per patient size (includes targeted exams where dose is matched to clinical indication); or iterative reconstruction. COMPARISON: CT head wo con* [id number] 01/08/2020 4:15 PM FINDINGS: Brain: There is decrease in size of the right frontoparietal intraparenchymal hemorrhage compared with the previous study. There are 2 intra-axial lesions in the posterior right frontal lobe and the right parietal lobe, both of which show evidence of internal hemorrhage. These are better visualized compared with the previous study due to the decreased surrounding hemorrhage. The lesion in the posterior right frontal lobe measures 3.0 x 2.3 x 2.3 cm (series 602, image 22 and series 2, image 37. The lesion in the right parietal lobe measures 2.1 x 1.9 x 2.0 cm (series 602, image 21 and series 2, image 35). Extensive vasogenic edema in the right frontal and parietal lobes is essentially unchanged. There is localized mass effect on the posterior horn of the right lateral ventricle that is unchanged. No acute infarct. No extra-axial fluid collections. Bilateral basal ganglia calcifications. No evidence for Chiari 1 malformation. Midline shift: No midline shift. Ventricles: Intraventricular hemorrhage in the temporal horns of the right and left ventricles is unchanged. Mass effect on the posterior horn of the right lateral ventricle from the intra cranial masses and vasogenic edema, unchanged. No hydrocephalus. Bones/joints: Moderate right nasal septal deviation. Sinuses: Paranasal sinuses are clear. Mastoid air cells: Mastoid air cells are clear bilaterally. Orbits: Globes and lenses, extraocular muscles, and optic nerves are intact bilaterally. No acute intraorbital abnormality. Soft tissues: The extracranial soft tissues are unremarkable. Vasculature: Atherosclerotic changes in the visualized arteries. CT/CT head wo con* [id number] IMPRESSION: 1. There are 2 intra-axial lesions in the posterior right frontal lobe and the right parietal lobe, both of which show evidence of internal hemorrhage. These are better visualized compared with the previous study due to the decreased surrounding hemorrhage. Extensive vasogenic edema in the right frontal and parietal lobes is essentially unchanged. There is localized mass effect on the posterior horn of the right lateral ventricle that is unchanged. No hydrocephalus. No midline shift. Further evaluation with MRI of the brain without and with contrast is recommended, if the patient has no contraindications. 2. There is decrease in size of the right frontoparietal intraparenchymal hemorrhage compared with the previous study. 3. Intraventricular hemorrhage in the temporal horns of the right and left ventricles is unchanged. 4. Incidental/nonacute findings are listed in the report. THIS REPORT CONTAINS FINDINGS THAT MAY BE CRITICAL TO PATIENT CARE. The findings were verbally communicated via telephone conference with Margoth Mccormick at 10:57 PM CDT on 01/15/2020. The findings were acknowledged and understood. Radiation Dose CTDIVOL = (mGy): DLP = 545.05 (mGy-cm) Dictated By:Jane Toribio MD Signed By:Jane Toribioigned Date/Time:01/15/20 2300 CXR: Attestation: I personally reviewed and interpreted this imaging study as follows: My impression: No acute disease. EKG Data^: EKG 1: Attestation: I personally reviewed and interpreted this EKG as follows: EKG interpretation date: 01/15/20 EKG interpretation time: 22:29 Prior EKG tracings: available for review Interpretation: Sinus rhythm rate 81 with a PVC. Poor R wave progression normal MA interval. No significant change from 06/13/2018 Discharge Plan Discharge Patient Disposition: Home, Self-Care Clinical Impression: Chest pressure Headache Qualifiers: Headache type: unspecified Headache chronicity pattern: unspecified pattern Intractability: not intractable Qualified Code(s): R51 - Headache Condition: Stable Prescriptions: New Decadron 4 mg tablet 4 mg PO Q6H Qty: 30 RF: 0 No Action spironolactone 25 mg tablet 25 mg PO DAILY RF: 0 indapamide 2.5 mg tablet 2.5 mg PO QAM RF: 0 cholecalciferol (vitamin D3) 1,000 unit capsule 1,000 unit PO DAILY RF: 0 metformin 1,000 mg tablet extended release 24hr 1,000 mg PO DAILY RF: 0 alprazolam 0.25 mg tablet 0.25 mg PO TID PRN (Reason: ANIEXTY) RF: 0 metoprolol tartrate 25 mg tablet 25 mg PO BID RF: 0 vitamin B complex [B Complex-Vitamin B12] Tablet 1 tab PO DAILY RF: 0 Caltrate 600 plus D 600 mg (1,500 mg)-800 unit tablet,chewable 1 tab PO QAM RF: 0 omega-3 fatty acids [Fish Oil Concentrate] 1,000 mg capsule 1,000 mg PO BID RF: 0 acetaminophen 500 mg Tablet 500 mg PO Q6H PRN (Reason: Pain) RF: 0 Referrals: Betito Gipson MD [Primary Care Provider] - Patient Instructions: Chest Pain (ED) Activity Restrictions/Additional Instructions: Keep all doctor appointments you currently have. Take decadron as directed 4mg every 6 hours for 3 days then 4mg every 8 hours for 3 days, then 4mg every 12 hours for 3 days, then 4 mg every day for 3 days Coding Level of Care Code ED Pattern Weaver for Chg Fwd Exam Comprehensive
--- NOTE | 2020-01-15 22:13 | CTR_ITS ---
PROCEDURE INFORMATION: Exam: CT Head Without Contrast Exam date and time: 01/15/2020 10:22 PM Age: 79 years old Clinical indication: Pain; Headache not specified; Patient HX: PT had a recent ich on 01/11/2020; Additional info: OLGUIN, recent ich, h/o metastatic melanoma TECHNIQUE: Imaging protocol: Computed tomography of the head without contrast. Sagittal and coronal reformatted images were created and reviewed. Total DLP: 545.05 mGy-cm Radiation optimization: All CT scans at this facility use at least one of these dose optimization techniques: automated exposure control; mA and/or kV adjustment per patient size (includes targeted exams where dose is matched to clinical indication); or iterative reconstruction. COMPARISON: CT head wo con* [id number] 01/08/2020 4:15 PM FINDINGS: Brain: There is decrease in size of the right frontoparietal intraparenchymal hemorrhage compared with the previous study. There are 2 intra-axial lesions in the posterior right frontal lobe and the right parietal lobe, both of which show evidence of internal hemorrhage. These are better visualized compared with the previous study due to the decreased surrounding hemorrhage. The lesion in the posterior right frontal lobe measures 3.0 x 2.3 x 2.3 cm (series 602, image 22 and series 2, image 37. The lesion in the right parietal lobe measures 2.1 x 1.9 x 2.0 cm (series 602, image 21 and series 2, image 35). Extensive vasogenic edema in the right frontal and parietal lobes is essentially unchanged. There is localized mass effect on the posterior horn of the right lateral ventricle that is unchanged. No acute infarct. No extra-axial fluid collections. Bilateral basal ganglia calcifications. No evidence for Chiari 1 malformation. Midline shift: No midline shift. Ventricles: Intraventricular hemorrhage in the temporal horns of the right and left ventricles is unchanged. Mass effect on the posterior horn of the right lateral ventricle from the intra cranial masses and vasogenic edema, unchanged. No hydrocephalus. Bones/joints: Moderate right nasal septal deviation. Sinuses: Paranasal sinuses are clear. Mastoid air cells: Mastoid air cells are clear bilaterally. Orbits: Globes and lenses, extraocular muscles, and optic nerves are intact bilaterally. No acute intraorbital abnormality. Soft tissues: The extracranial soft tissues are unremarkable. Vasculature: Atherosclerotic changes in the visualized arteries. CT/CT head wo con* [id number] IMPRESSION: 1. There are 2 intra-axial lesions in the posterior right frontal lobe and the right parietal lobe, both of which show evidence of internal hemorrhage. These are better visualized compared with the previous study due to the decreased surrounding hemorrhage. Extensive vasogenic edema in the right frontal and parietal lobes is essentially unchanged. There is localized mass effect on the posterior horn of the right lateral ventricle that is unchanged. No hydrocephalus. No midline shift. Further evaluation with MRI of the brain without and with contrast is recommended, if the patient has no contraindications. 2. There is decrease in size of the right frontoparietal intraparenchymal hemorrhage compared with the previous study. 3. Intraventricular hemorrhage in the temporal horns of the right and left ventricles is unchanged. 4. Incidental/nonacute findings are listed in the report. THIS REPORT CONTAINS FINDINGS THAT MAY BE CRITICAL TO PATIENT CARE. The findings were verbally communicated via telephone conference with Margoth Mccormick at 10:57 PM CDT on 01/15/2020. The findings were acknowledged and understood. Radiation Dose CTDIVOL = (mGy): DLP = 545.05 (mGy-cm)
--- NOTE | 2020-01-15 22:14 | ECG_ITS ---
Measurements Intervals [place] Rate: 81 P: 32 GA: 155 QRS: -48 QRSD: 142 T: 11 QT: 383 QTc: 446 SINUS RHYTHM WITH OCCASIONAL VENTRICULAR PREMATURE COMPLEXES INTRAVENTRICULAR CONDUCTION DELAY [130+ ms QRS DURATION] POSSIBLE LATERAL MYOCARDIAL INFARCTION , PROBABLY OLD [30 ms Q WAVE IN I/aVL/V5/V6] Compared to ECG 05/26/2018 12:38:39 Intraventricular conduction delay now present Myocardial infarct finding now present Left-axis deviation no longer present Electronically Signed On 01-16-2020 20:14:37 CDT by Jack Arthur M.D. [email or web address]
[2020-01-15 22:27] LABS: Basophils % 0.5 %; Eosinophils # 0.1 10^3/uL (0.0-0.8); Eosinophils % 1.2 %; Hematocrit 50.1 % (37.0-47.0); Hemoglobin 16.6 g/dL (11.5-15.3); Lymphocytes # 1.8 10^3/uL (0.8-4.8); Lymphocytes % 22.9 %; Mean Corpuscular HGB Conc 33.1 g/dL (30.0-36.0); Mean Corpuscular Hemoglobin 29.7 pg (28.0-34.0); Mean Corpuscular Volume 89.6 fL (81-99); Monocytes # 0.6 10^3/uL (0.2-0.9); Monocytes % 7.6 %; Neutrophils # 5.2 10^3/uL (1.8-7.7); Neutrophils % 67.7 %; Nucleated Red Blood Cells % 0 %; Platelet Count 201 10^3/cmm (130-400); Red Blood Count 5.59 10^6/uL (4.1-5.3); Red Cell Distribution Width 13.6 % (12.1-15.1); White Blood Count 7.7 10^3/uL (4.0-10.0)
--- NOTE | 2020-01-15 22:31 | PC.NURSE ---
pt to xray
[2020-01-15 22:42] LABS: Anion Gap 21.3 (5-19); Blood Urea Nitrogen 12 mg/dL (8-23); Calcium 10.3 mg/dL (8.5-10.5); Carbon Dioxide 18 mmol/L (22-29); Chloride 98 mmol/L (98-107); Glucose 168 mg/dL (65-115); Osmolality Calculated 278 mOsm/kg (285-295); Potassium 3.3 mmol/L (3.5-5.1); Sodium 134 mmol/L (136-145)
--- NOTE | 2020-01-15 22:50 | XR_ITS ---
WS: [id number] PORTABLE CHEST HISTORY: Acute onset chest pain. COMPARISON: 08/01/2018 LEFT subclavian Port-A-Cath with tip in the distal SVC. Patient is moderately rotated to the LEFT. Lungs are hyperinflated. Mild pulmonary congestion has imp roved since the prior study. Partial obscuration of the LEFT costophrenic angle. No dense consolidati on or pneumonia. Small LEFT pleural effusion not excluded. Cardiac size: Moderately enlarged cardiac silhouette. Mediastinum/Aorta: Moderate atherosclerosis aorta. Osteopenia. Severe degenerative changes at the glenohumeral joints. Thoracic spine spondylosis. XR/XR chest 1V portable [id number] IMPRESSION: 1. Pulmonary hyperexpansion with improved venous congestion since 12/29/2019. 2. Increased consolidation at the LEFT costophrenic angle may be atelectasis or pleural fluid. This is at the area of previously described mass as seen on 03/29. May be recurrent neoplasm. Prior chest CTs from 07/13/2019 and 12/29/2019 a re reviewed. Ovoid consolidation has increased, may be increasing atelectasis o r recurrent neoplasm.
[2020-01-15 22:56] LABS: Troponin T (5th) Once 53 ng/mL (0-10)
[2020-01-15] MEDS: oxymetazoline 0.05% Nasal Spray 15 mL 2 SPRAY NOSTRIL-B (23:02)
[2020-01-15] MEDS: dexamethasone 4 mg Tablet PO (23:57)
[2020-01-16 00:04] VITALS: BP 169/79; PULSE 69; RESP 16; TEMP 36.5; O2SAT 94
== END 2020-01-16 01:40 | disposition home or self-care (01) ==
PROVIDERS: Emergency Provider Emergency Medicine; Family Provider Family Medicine; PCP Family Medicine
DX: R07.89 Other chest pain (principal); R51 Headache; Z87.891 Personal history of nicotine dependence
CPT/HCPCS: 12345; 36415; 70450; 71045; 80048; 84484; 85025; 93005; 99281; 99283; J8540